=== PATIENT | male | born 1935 | race Caucasian/White ===

== ENCOUNTER 2016-10-27 22:42 | Observation (INO) | payer OTHER, MEDICARE ==
[~2016-10-27] VITALS: Ht 170.2 cm; Wt 106.6 kg
--- NOTE | 2016-10-27 22:43 | ED CARDIAC/CP/PALPITATIONS ---
History of Present Illness General Chief Complaint: Chest Pain Stated Complaint: BIBA FOR EVAL OF CHEST PAIN Source: patient, family, old records, EMS Exam Limitations: no limitations Vital Signs & Intake/Output Vital Signs & Intake/Output Vital Signs Date Time Temp Pulse Resp B/P Pulse O2 O2 Flow FiO2 Ox Delivery Rate 10/28 0030 96.9 71 20 135/74 96 Nasal Cannula 10/27 2250 97.6 69 20 139/68 96 Room Air ED Intake and Output 10/28 0000 10/27 1200 Intake Total 0 Output Total Balance 0 Intake, Oral 0 Patient 235 lb Weight Allergies Coded Allergies: alcohol (UNKNOWN 10/27/16) morphine (Intermediate, N/V 10/27/16) Reconcile Medications Amlodipine Besylate (Norvasc) 5 MG TABLET 0.5 TAB PO DAILY HIGH BLOOD PRESSURE (Reported) Ascorbic Acid (Vitamin C) 500 MG CAPSULE.ER 1 TAB PO DAILY VITAMIN SUPPORT ( Reported) Aspirin (Aspirin*) 81 MG TAB.CHEW 1 TAB PO DAILY HEART HEALTH (Reported) Dabigatran Etexilate Mesylate (Pradaxa 150 MG) 150 MG CAPSULE 1 TAB PO BID BLOOD THINNER (Reported) Doxazosin Mesylate (Cardura) 4 MG TABLET 2 TAB PO BID HIGH BLOOD PRESSURE ( Reported) Duloxetine HCl 60 MG CAPSULE.DR 60 MG PO DAILY PAIN CONTROL (Reported) Omeprazole 20 MG CAPSULE.DR 20 MG PO DAILY STOMACH HEALTH (Reported) Potassium Chloride 10 MEQ TAB.ER.PRT 10 MEQ PO DAILY LOW POTASSIUM (Reported) Pregabalin (Lyrica) 75 MG CAPSULE 75 MG PO BID PAIN CONTROL (Reported) Rosuvastatin Calcium (Crestor) 10 MG TABLET 10 MG PO DAILY HIGH CHOLESTROL ( Reported) Silodosin (Rapaflo) 8 MG CAPSULE 8 MG PO DAILY BLADDER HEALTH (Reported) Tolterodine Tartrate (Tolterodine Tartrate ER) 4 MG CAP.ER.24H 25 MG PO DAILY THYROID HEALTH (Reported) Valsartan/Hydrochlorothiazide (Diovan Hct 320-12.5 MG Tab) 320 MG-12.5 MG TABLET 1 TAB PO DAILY HEART HEALTH (Reported) Triage Nurses Notes Reviewed? yes Onset: Abrupt Duration: minute(s): (30) Timing: single episode today Quality/Severity: severe, pressure (IN CHEST), sharp (RIGHT ARM) Location: central Radiation: RIGHT ARM Activities at Onset: GETTING SOME SNACKS FROM THE KITCHEN Prior Chest Pain/Card Workup: cardiac cath Aspirin Today: provided by EMS Associated Symptoms: CHEST PAIN, ARM PAIN HPI: 81-year-old male with history of significant coronary disease, previous ND, 11 previous cardiac stents who presents via EMS from home for chief complaint of sudden onset of chest pain and right arm pain that started half an hour ago at home. Patient states he just gotten home from a meeting at [employer] and was referring to make himself some snacks when pain started. He described it as a sharp pain in his arm and he cannot attend pressure in his chest. He was given 324 mg of aspirin as well as 1 nitroglycerin spray in the ambulance. Currently he rates the chest pain is 5 out of 10 but states his right arm is still sharp. No shortness of breath or palpitations. He does notice some increased edema and bilateral legs for the past couple of days. Last cardiac stent [place] [address] 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 He denies any recent change in medications. Past History Travel History Traveled to [place] past 21 day No Medical History Any Pertinent Medical History? see below for history Neurological: NONE EENT: NONE Cardiovascular: AFIB, hypertension, hyperlipidemia, myocardial infarction, STENTS (11) Respiratory: NONE Gastrointestinal: NONE Hepatic: NONE Renal: NONE Musculoskeletal: chronic back pain Psychiatric: NONE Endocrine: hypothyroidism Blood Disorders: NONE Cancer(s): PROSTATE CANCER MELENOMA PERIPATOLOGIST/Reproductive: NONE Surgical History Surgical History: RIGHT HIP REPLACEMENT, STENTS X 11,BACK SURGERY Psychosocial History Who do you live with Spouse Services at Home None What is your primary language Spanish Family History Hx Contributory? No Review of Systems Review of Systems Constitutional: Denies: chills, fever. EENTM: Reports: no symptoms. Respiratory: Denies: cough, short of breath. Cardiovascular: Reports: chest pain. Denies: palpitations, peripheral edema. GI: Denies: abdominal pain, nausea, vomiting. Genitourinary: Reports: no symptoms. Musculoskeletal: Reports: see HPI (ARM PAIN). Skin: Reports: no symptoms. Neurological/Psychological: Reports: no symptoms. Hematologic/Endocrine: Denies: bruising, bleeding, polyuria, polydipsia. Immunologic/Allergic: Denies: splenectomy. All Other Systems: Reviewed and Negative Physical Exam Physical Exam General Appearance: well developed/nourished, alert, awake Head: atraumatic, normal appearance Eyes: Bilateral: normal appearance, PERRL, EOMI. Ears, Nose, Throat: normal pharynx, normal ENT inspection, hearing grossly normal Neck: normal inspection, supple, full range of motion Respiratory: normal breath sounds, chest non-tender, no respiratory distress Cardiovascular: regular rate/rhythm Peripheral Pulses: 2+ radial (R), 2+ radial (L) Gastrointestinal: soft, non-tender Extremities: normal inspection, no edema Neurologic/Psych: awake, alert, oriented x 3 Skin: intact, normal color, warm/dry Core Measures ACS in differential dx? Yes ASA ordered for poss ACS? given in field Severe Sepsis Present: No Septic Shock Present: No Progress Differential Diagnosis: AMI, aortic dissection, atrial fibrillation, costochondritis, pneumonia, pneumothorax, PSVT, pulmonary embolism, unstable angina, CERVICAL RADICULOPATHY Plan of Care: Orders Procedure Date/time Status Heart Healthy Diet 10/28 B Active TROPONIN LEVEL 10/28 1200 Active EKG 10/28 1200 Active TROPONIN LEVEL 10/28 0600 Active CBC WITHOUT DIFFERENTIAL 10/28 0600 Active BASIC ELECTROLYTES PLUS BUN&CR 10/28 0600 Active EKG 10/28 0600 Active Pathway - chart 10/28 0217 Active House Staff 10/28 0217 Active Patient Data 10/28 0217 Active Code Status 10/28 0217 Active Patient Data 10/[address] in observation 10/28 0058 Active Vital Signs 10/28 0058 Active Code Status 10/28 0058 Complete XRY-CERVICAL SPINE ONE VIEW 10/28 UNK Active VTE Mechanical Prophylaxis 10/28 UNK Active Telemetry/Tray Service Worker 10/28 UNK Active Telemetry/Tray Service Worker 10/27 2250 Active TROPONIN LEVEL 10/27 2243 Complete COMPREHENSIVE METABOLIC PANEL 10/27 2243 Complete CBC WITHOUT DIFFERENTIAL 10/27 2243 Complete EKG 10/27 2243 Active Current Medications Sig/Lencho Start time Last Medication Dose Stop Time Status Admin Enoxaparin Sodium 40 MG DAILY 10/28 1000 UNVr (Lovenox) Acetaminophen 650 MG Q6P PRN 10/28 0230 AC (Tylenol) Laboratory Tests 10/27/16 2315: Anion Gap 13, Estimated GFR > 60, BUN/Creatinine Ratio 20.0, Glucose 143 H, Calcium 9.2, Total Bilirubin 0.5, AST 26, ALT 40, Alkaline Phosphatase 61, Troponin I < 0.01, Total Protein 6.4, Albumin 3.8, Globulin 2.6, Albumin/ Globulin Ratio 1.5, CBC w Diff NO MAN DIFF REQ, RBC 3.77 L, MCV 93.1, MCH 31.0, RDW 14.5, MPV 8.6, Gran % 65.8, Lymphocytes % 19.4 L, Monocytes % 11.4 H, Eosinophils % 2.7, Basophils % 0.7, Absolute Granulocytes 6.2, Absolute Lymphocytes 1.8, Absolute Monocytes 1.1 H, Absolute Eosinophils 0.2, Absolute Basophils 0.1, PUBS MCHC 33.3 ASPIRIN/NITRO IN FIELD. STILL 5/10 PAIN. SL NITRO ORDERED. 12:50 CHEST PAIN FREE AFTER REPEAT NITRO. STILL SEVERE RIGHT ARM PAIN. IV DILAUDID [address]. CXR NEGATIVE. [address] CHEST ORDERED TO R/O DISSECTION. POTASSIUM ORDERED FOR HYPOKALEMIA. CT ANGIO NEGATIVE FOR DISSECTION. D/W DR HOBSON WILL PLACE ON TELE FOR OBS. CURRENTLY CHEST PAIN FREE AND PATIENT DENIES ANY ARM PAIN. (PAULA MIRANDA,MARILYN) Diagnostic Imaging: Viewed by Me: Radiology Read, CT Scan. Discussed w/RAD: Radiology Read, CT Scan. Radiology Impression: PATIENT: FORREST ALMARAZ PRESENT AGE: 81 PATIENT ACCOUNT NO: [id number] : 35 LOCATION: [facility] ORDERING PHYSICIAN: MARILYN MITCHELL MD SERVICE DATE: 10/27/16 EXAM TYPE: CAT - CTA CHEST-AORTIC DISSECTION STUDY PERFORMED: CTA OF THE CHEST WITH AND WITHOUT CONTRAST CLINICAL INFORMATION: Severe chest pain radiating to the right arm. DESCRIPTION: Initial noncontrast CT of the chest was performed. Contrast timing was performed at the level of the aortic arch. Subsequently, arterial phase multidetector volumetric imaging was performed through the chest following the administration of 115 mL Optiray 350 intravenous contrast. No contrast reaction reported Sagittal and coronal reformatted images were obtained on the technologist workstation. Three-dimensional MIP reformatted imaging was performed and reviewed. Total exam dose-length product 1421 mGy-cm COMPARISON: 12/14/2010. FINDINGS: Vascular: 1. Normal origin of the main coronary arteries. Diffuse coronary artery calcifications are present. 2. The ascending thoracic aorta is normal in course and caliber without dissection. 3. The aortic arch is normal in caliber without dissection. Normal branching configuration with patent great vessels. 4. The descending thoracic aorta is normal in caliber without dissection. Mild atherosclerotic calcification. Mildly tortuous course. 5. No central pulmonary embolism. Nonvascular: CHEST: The central airways are patent. The lungs are clear with no evidence of consolidation. No pleural effusion or pneumothorax. Minimal bibasilar atelectasis. Stable left lower lobe 0.4 cm pulmonary nodule, series 5 image 266. The heart is enlarged. No significant pericardial effusion. No mediastinal lymphadenopathy. No axillary lymphadenopathy. Surgical clips are seen in the right axillary soft tissues. UPPER ABDOMEN: Right upper pole renal cyst noted. The visualized portion of the upper abdomen is otherwise unremarkable. BONY STRUCTURES: No acute or suspicious osseous abnormality. Degenerative changes are seen throughout the spine. Spinal stimulator hardware noted terminating at the level of T8. IMPRESSION: 1. No aortic dissection. No significant vascular stenoses. Extensive coronary artery calcifications. 2. No acute findings in the lungs. Minimal atelectasis. 3. Stable left lower lobe pulmonary nodule over many years suggesting benign etiology. DICTATED BY: ELISEO BROWER MD DATE/TIME DICTATED:10/28/1635 TERRITORY MANAGER:EITAN DATE/TIME TRANSCRIBED:10/28/1635 CONFIDENTIAL, DO NOT COPY WITHOUT APPROPRIATE AUTHORIZATION. <Electronically signed in Other Vendor System> SIGNED BY: ELISEO BROWER MD 10/28/16 0049 CXR Impression: PATIENT: FORREST ALMARAZ PRESENT AGE: 81 PATIENT ACCOUNT NO: [id number] : 35 LOCATION: [facility] ORDERING PHYSICIAN: MARILYN MITCHELL MD SERVICE DATE: 10/27/16 EXAM TYPE: RAD - XRY-PORTABLE CHEST XRAY EXAMINATION: XR PORTABLE CHEST CLINICAL INFORMATION: Chest pain. COMPARISON: Chest x-ray 03/10/2015 TECHNIQUE: Portable AP view of the chest was obtained. FINDINGS: Lungs are clear. No pulmonary vascular congestion. No infiltrate or pleural effusion. The heart size is normal. The cardiac and mediastinal contours are normal. There are calcifications of the thoracic aorta. There are multilevel degenerative changes of dorsal spine. Surgical clips over the right axilla. IMPRESSION: No acute abnormality of the chest. DICTATED BY: JAZMYNE GILMORE MD DATE/TIME DICTATED:10/27/162319 TERRITORY MANAGER:EITAN DATE/TIME TRANSCRIBED:10/27/162319 CONFIDENTIAL, DO NOT COPY WITHOUT APPROPRIATE AUTHORIZATION. <Electronically signed in Other Vendor System> SIGNED BY: JAZMYNE GILMORE MD 10/27/162324 Initial ED EKG: AFIB Prior EKG: unchanged Rhythm Strip: atrial fibrillation Departure Departure Time of Disposition: 57 Disposition: STILL A PATIENT Condition: Stable Clinical Impression Primary Impression: Chest pain Secondary Impressions: Hypokalemia Referrals: SYEDA MEDLEY MD (PCP/Family) Departure Forms: Customer Survey General Discharge Information Observation Note Spoke With: JOCE MIRANDA,DIANNA Physician Advisor Notified: LILA HDZ DO Place Patient In: Non-ED OBS Care Area Rationale for Observation: My rational for observation is as follows [TELE MONITOR, ASPIRIN, NITRATES, SERIAL EKG, SERIAL TROPONIN, CARDIOLOGY CONSULT DR GUTIERREZ, ECHOCARDIOGRAM]. Critical Care Note Critical Care Note Critical Care Time: 30-74 min
--- NOTE | 2016-10-27 22:50 | NUR ---
PT BIBA FROM HOME. PER EMS PT HAD SUDDEN ONSET OF SUNSTERNAL CP RADIATING TO RIGHT ARM 30 MIN FINISHING TRIMMER. PER EMS PT TOOK 325 MG ASPIRIN AND EMS GAVE PT 1 NITRO THAT BROUGHT THE CP FROM 05/24 TO 12/22. PT HAS HX NH AND 10 CARDIAC SENTS.
--- NOTE | 2016-10-27 23:25 | RADIOLOGY REPORT ---
EXAMINATION: XR PORTABLE CHEST CLINICAL INFORMATION: Chest pain. COMPARISON: Chest x-ray 03/10/2015 TECHNIQUE: Portable AP view of the chest was obtained. FINDINGS: Lungs are clear. No pulmonary vascular congestion. No infiltrate or pleural effusion. The heart size is normal. The cardiac and mediastinal contours are normal. There are calcifications of the thoracic aorta. There are multilevel degenerative changes of dorsal spine. Surgical clips over the right axilla. IMPRESSION: No acute abnormality of the chest.
[2016-10-27 23:26] LABS: ABSOLUTE BASOPHIL COUNT 0.1 /CUMM (0.0-0.2); ABSOLUTE EOSINOPHIL COUNT 0.2 /CUMM (0.0-0.7); ABSOLUTE GRANULOCYTE CT 6.2 /CUMM (1.4-6.5); ABSOLUTE LYMPH COUNT 1.8 /CUMM (1.2-3.4); ABSOLUTE MONOCYTE COUNT 1.1 /CUMM (0.10-0.60); BASOPHIL % 0.7 % (0.0-2.0); EOSINOPHIL % 2.7 % (0-5); GRANULOCYTE % 65.8 % (42.2-75.2); HEMATOCRIT 35.1 % (42-52); MEAN CORPUSCULAR HGB CONC 33.3 G/DL (33.0-37.0); MEAN CORPUSCULAR VOLUME 93.1 FL (80.0-94.0); MEAN PLATELET VOLUME 8.6 FL (7.4-10.4); PLATELET COUNT 197 /CUMM (130-400); RBC DISTRIBUTION WIDTH 14.5 % (11.5-14.5); RED BLOOD CELL CT 3.77 /CUMM (4.70-6.10); WHITE BLOOD CELL COUNT 9.4 /CUMM (4.8-10.8)
--- NOTE | 2016-10-27 23:29 | NUR ---
PT REPORTS CP PAIN INCREASING. PT MEDICATED WITH 1MG HYDROMORPHONE PER ORDER
--- NOTE | 2016-10-27 23:50 | NUR ---
CRITICAL TEST RESULTS [id number] FORREST ALMARAZ 81 M TESTS AND RESULTS: POTASSIUM 3.0 Results received and read back by: ABBY HOOVER Results received date and time: 10/27/16 2350 The following provider was notified of the results, and read the results back: MD MITCHELL Notified date and time: 10/27/16 at 2350
--- NOTE | 2016-10-27 23:51 | NUR ---
PT REPORTS PAIN DECREASING AFTER BEING MEDICATED.
--- NOTE | 2016-10-28 00:30 | NUR ---
PT REPORTS PAIN IMPROVING AFTER BEING MEDICATED. PT DENIES CP BUT STILL C/O ARM PAIN. PT A/O X4. RESP UNLABORED. SKIN WARM AND DRY. NO APPARENT DISTRESS, WILL CONTINUE TO MONITOR.
--- NOTE | 2016-10-28 00:49 | CT SCAN REPORT ---
STUDY PERFORMED: CTA OF THE CHEST WITH AND WITHOUT CONTRAST CLINICAL INFORMATION: Severe chest pain radiating to the right arm. DESCRIPTION: Initial noncontrast CT of the chest was performed. Contrast timing was performed at the level of the aortic arch. Subsequently, arterial phase multidetector volumetric imaging was performed through the chest following the administration of 115 mL Optiray 350 intravenous contrast. No contrast reaction reported Sagittal and coronal reformatted images were obtained on the technologist workstation. Three-dimensional MIP reformatted imaging was performed and reviewed. Total exam dose-length product 1421 mGy-cm COMPARISON: 12/14/2010. FINDINGS: Vascular: 1. Normal origin of the main coronary arteries. Diffuse coronary artery calcifications are present. 2. The ascending thoracic aorta is normal in course and caliber without dissection. 3. The aortic arch is normal in caliber without dissection. Normal branching configuration with patent great vessels. 4. The descending thoracic aorta is normal in caliber without dissection. Mild atherosclerotic calcification. Mildly tortuous course. 5. No central pulmonary embolism. Nonvascular: CHEST: The central airways are patent. The lungs are clear with no evidence of consolidation. No pleural effusion or pneumothorax. Minimal bibasilar atelectasis. Stable left lower lobe 0.4 cm pulmonary nodule, series 5 image 266. The heart is enlarged. No significant pericardial effusion. No mediastinal lymphadenopathy. No axillary lymphadenopathy. Surgical clips are seen in the right axillary soft tissues. UPPER ABDOMEN: Right upper pole renal cyst noted. The visualized portion of the upper abdomen is otherwise unremarkable. BONY STRUCTURES: No acute or suspicious osseous abnormality. Degenerative changes are seen throughout the spine. Spinal stimulator hardware noted terminating at the level of T8. IMPRESSION: 1. No aortic dissection. No significant vascular stenoses. Extensive coronary artery calcifications. 2. No acute findings in the lungs. Minimal atelectasis. 3. Stable left lower lobe pulmonary nodule over many years suggesting benign etiology.
--- NOTE | 2016-10-28 02:07 | NUR ---
HOUSESTAFF AT BEDSIDE
--- NOTE | 2016-10-28 02:14 | History & Physical ---
BETHANY GONZÁLES MD 10/28/16 0213: General Information and HPI MD Statement: I have seen and personally examined FORREST ALMARAZ and documented this H&P. The patient is a 81 year old M who presented with a patient stated chief complaint of right arm and chest pain. Source of Information: patient, old records Exam Limitations: no limitations History of Present Illness: Mr. Almaraz is a pleasant 81 year old male with PMH coronary artery disease with stent placement x 11 (last stent placement by Dr. Reaves in 2011) , NSTEMI x 2 (2006, 2011), HTN, HLD, atrial fibrillation on pradaxa, chronic low back pain s/p L4-L5 fusion followed by Dr. Bolton, hypothyroidism, prostate cancer and melanoma status post excision who presents with chief complaint of right arm pain and right-sided chest pain. Patient reports that he was in his usual state of health this morning where he attending a yarsanism gathering. He later came home, was making himself a snack and noticed a sudden-onset 10/10 right arm pain, located mostly in the right biceps area. This pain was described as sharp. He became nervous that he was experiencing another myocardial infarction and had his call EMS at that time. On EMS arrival, patient then noted right-sided chest pressure, which was non-radiating, not associated with diaphoresis, shortness or breath or palpitations and was different in nature to the chest pain he experienced with his prior NSTEMIs. He had both aspirin and a nitrogylcerin, the latter which dropped his chest pain from a 10/10 to a 5/10. He again had another nitrogylcerin when he arrived to our emergency room which dropped the chest pressure to a 0/10 but had again no effect on the right arm pain. Associated symptoms included intense right arm and right-sided chest pressure. He also endorsed larygnitis that started approximately one day ago. He denies fever, chills, diaphoresis, palpitations, shortness of breath, abdominal pain, nausea, vomiting or weakness. Of ntoe, patient admitted that he was outside shoveling yesterday and was slightly more active than normal. He denied increase stress or anxiety during his yarsanism meeting today. Social history is significant for former smoking. He denies alcohol or illicit drug use. He lives at home with his and ambulates without assist device. He follows with Dr. Jace Martinez MD as his line tester and Dr. Bolton as his pain specialist. Allergies/Medications Allergies: Coded Allergies: alcohol (UNKNOWN 10/27/16) morphine (Intermediate, N/V 10/27/16) Home Med list Amlodipine Besylate (Norvasc) 5 MG TABLET 0.5 TAB PO DAILY HIGH BLOOD PRESSURE (Reported) Ascorbic Acid (Vitamin C) 500 MG CAPSULE.ER 1 TAB PO DAILY VITAMIN SUPPORT ( Reported) Aspirin (Aspirin*) 81 MG TAB.CHEW 1 TAB PO DAILY HEART HEALTH (Reported) Calcium Carbonate/Vitamin D3 (Caltrate 600 + D Tablet) 600 MG-800 TABLET 1 TAB PO DAILY VITAMIN SUPPORT (Reported) Dabigatran Etexilate Mesylate (Pradaxa 150 MG) 150 MG CAPSULE 1 TAB PO BID BLOOD THINNER (Reported) Doxazosin Mesylate (Cardura) 4 MG TABLET 2 TAB PO BID HIGH BLOOD PRESSURE ( Reported) Duloxetine HCl 60 MG CAPSULE.DR 60 MG PO DAILY PAIN CONTROL (Reported) Furosemide 20 MG TABLET 20 MG PO DAILY WATER RETENTION (Reported) Levothyroxine Sodium 25 MCG TABLET 1 TAB PO DAILY thyroid (Reported) Magnesium Oxide (Magnesium) 500 MG CAPSULE 500 MG PO DAILY RESTLESS LEGS ( Reported) Omeprazole 20 MG CAPSULE.DR 20 MG PO DAILY STOMACH HEALTH (Reported) Potassium Chloride 10 MEQ TAB.ER.PRT 10 MEQ PO DAILY LOW POTASSIUM (Reported) Pregabalin (Lyrica) 75 MG CAPSULE 75 MG PO BID PAIN CONTROL (Reported) Rosuvastatin Calcium (Crestor) 10 MG TABLET 10 MG PO DAILY HIGH CHOLESTROL ( Reported) Silodosin (Rapaflo) 8 MG CAPSULE 8 MG PO DAILY BLADDER HEALTH (Reported) Valsartan/Hydrochlorothiazide (Diovan Hct 320-12.5 MG Tab) 320 MG-12.5 MG TABLET 1 TAB PO DAILY HEART HEALTH (Reported) Compliance With Home Meds: GOOD Past History Travel History Traveled to [place] past 21 day No Medical History Neurological: NONE EENT: NONE Cardiovascular: AFIB, hypertension, hyperlipidemia, myocardial infarction, STENTS (11) Respiratory: NONE Gastrointestinal: NONE Hepatic: NONE Renal: NONE Musculoskeletal: chronic back pain Psychiatric: NONE Endocrine: hypothyroidism Blood Disorders: NONE Cancer(s): PROSTATE CANCER 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 Home Who Do You Live With? spouse Services at Home: None Primary Language: British Smoking Status: Former Smoker ETOH Use: denies use Illicit Drug Use: denies illicit drug use Functional Ability ADLs Independent: dressing, eating, toileting, bathing. Ambulation: independent IADLs Independent: shopping, housework, finances, food prep, telephone, transportation , medication admin. Employment History Employment Retired Review of Systems Review of Systems Constitutional: Denies: chills, diaphoresis, fever, malaise, weakness. EENTM: Denies: visual changes, hearing changes, nasal congestion. Cardiovascular: Reports: chest pain. Denies: edema, orthopena, palpitations, peripheral edema, syncope. Respiratory: Denies: cough, short of breath, sputum production, wheezing. GI: Denies: abdominal pain, nausea, vomiting. Genitourinary: Denies: dysuria, hematuria. Musculoskeletal: Reports: back pain (Chronic low back pain). Skin: Reports: lesions (Scattered raised red moles). Denies: rash. Neurological/Psychological: Denies: anxiety, ataxia, confusion, headache, paresthesia, tingling. Hematologic/Endocrine: Denies: bruising, bleeding. Immunologic/Allergic: Denies: splenectomy. Exam & Diagnostic Data Last 24 Hrs of Vital Signs/I&O Vital Signs Date Time Temp Pulse Resp B/P Pulse O2 O2 Flow FiO2 Ox Delivery Rate 10/28 0247 97.2 65 18 130/62 96 Nasal 2.0L Cannula 10/28 0030 96.9 71 20 135/74 96 Nasal Cannula 10/27 2250 97.6 69 20 139/68 96 Room Air Intake & Output 10/28 0800 10/28 0000 10/27 1600 Intake Total 0 Output Total Balance 0 Intake, Oral 0 Patient 235 lb Weight Physical Exam General Appearance Alert, Oriented X3, Cooperative, No Acute Distress Skin Scattered erythematous and slightly raised lesions which patient report are chronic. , Chronic venous stasis changes of bilateral shins. HEENT Atraumatic, PERRLA, EOMI, Mucous Membr. moist/pink Neck Supple, +2 Carotid Pulse wo Bruit Lymphatic Cervical nl Cardiovascular Irregularly irregular, normal intensity S1/S2 Lungs Clear to Auscultation, Normal Air Movement Abdomen Obese, non-tender to palpation, +BS x four quadrants, left lower quadrant nerve stimulator and right abdomen surgical excisional scar. Neurological Normal Speech, Strength at 5/5 X4 Ext, Normal Tone Extremities No Clubbing, No Cyanosis, 1+ pitting edema of bilateral lower extremities with chronic stasis changes Vascular Pulses Symmetrical Last 24 Hrs of Labs/David: Laboratory Tests 10/27/16 2315: Anion Gap 13, Estimated GFR > 60, BUN/Creatinine Ratio 20.0, Glucose 143 H, Calcium 9.2, Total Bilirubin 0.5, AST 26, ALT 40, Alkaline Phosphatase 61, Troponin I < 0.01, Total Protein 6.4, Albumin 3.8, Globulin 2.6, Albumin/ Globulin Ratio 1.5, CBC w Diff NO MAN DIFF REQ, RBC 3.77 L, MCV 93.1, MCH 31.0, RDW 14.5, MPV 8.6, Gran % 65.8, Lymphocytes % 19.4 L, Monocytes % 11.4 H, Eosinophils % 2.7, Basophils % 0.7, Absolute Granulocytes 6.2, Absolute Lymphocytes 1.8, Absolute Monocytes 1.1 H, Absolute Eosinophils 0.2, Absolute Basophils 0.1, PUBS MCHC 33.3 Diagnostic Data EKG Results Atrial fibrillation, QTC 496. CXR Results IMPRESSION: No acute abnormality of the chest. Other Results Chest CTA: IMPRESSION: 1. No aortic dissection. No significant vascular stenoses. Extensive coronary artery calcifications. 2. No acute findings in the lungs. Minimal atelectasis. 3. Stable left lower lobe pulmonary nodule over many years suggesting benign etiology. Assessment/Plan Assessment: Mr. Almaraz is a pleasant 81 year old male with PMH HTN, HLD, atrial fibrillation on pradaxa, coronary artery disease s/p 11 stents (most recent in 2011), two NSTEMI, chronic low back pain with L4-L5 fusion, hypothyroidism, prostate cancer and melanoma who presents with chief complaint of right arm and chest pain. As per patient, he was making a snack earlier this AM when he noted 10/10 right biceps and arm pain for which he called EMS. On their arrival, he developed 10/10 right-sided chest pressure that was responsive to nitrogylcerin. There was no associated diaphoresis, neck pain, nausea, vomiting or palpitations. In the ED: Vital signs showed T 97.6, HR 69, RR 20, BP 139/68 and O2 saturation of 96% on room air. Labs were significant for normocytic anemia to 11.7/35.1, K of 3, Glucose of 143 and troponin <0.01. CXR showed no acute abnormality of the chest. Chest CTA showed no aortic dissection, extensive coronary artery calcifications, minimal atelectasis, and a stable left lower lobe pulmonary nodule. Patient is admitted as observation to the telemetry floor and the following is the management: 1. Chest pain, rule out ACS * Due to extensive cardiac history and HPI suggestive of possible underlying cardiac cause of right arm/chest discomfort, we will admit patient to telemetry for observation * Continuous telemetry monitoring * Trend troponins/EKG at 6 am and 12 pm (first set negative) * Inform Dr. Martinez of admission in the morning for further cardiac recomendations * Hold off on echocardiogram for now as patient recently had one by Dr. Martinez * Provide supplemental O2 as needed * For right arm pain, we will obtain next Xray to monitor for osteophyte formation/OA changes which may be contributing to right arm pain 2. Hypokalemia * Patient has a history of hypokalemia and is on supplementation as an outpatient * Patient given 40 meq PO KDur and 10 meq KCl while in the ED * F/U repeat labwork in the morning and replete K as necessary * Continue 10 meq PO KDur daily with 500 mg PO daily magnesium 3. HTN, HLD * Monitor vital signs Q shift * Continue HCTZ 12.5 mg PO daily, losartan 50 mg PO daily and norvasc 2.5 mg PO daily * Continue atorvastatin 40 mg PO daily 4. Atrial fibrillation * Pradaxa 150 mg PO BID and aspirin daily 5. Low back pain, right arm pain * Tylenol for mild pain * Continue home regimen of cymbalta 60 mg PO daily and lyrica 75 mg PO BID 6. Prostate * Continue cardura 6 mg PO BID and rapaflo 8 mg PO daily 7. Hypothyroidism * Continue synthroid 0.025 mg PO daily FULL CODE DVTP: SC Lovenox Heart Healthy Diet Mild and chronic pain pathway As Ranked By This Provider Problem List: 1. Chest pain 2. Hypokalemia 3. Dependent edema 4. Hyperlipidemia 5. Benign prostatic hyperplasia 6. Benign hypertension Core Measures/Miscellaneous Acute Coronary Syndrome ACS Diagnosis: No Cerebrovascular Accident CVA/TIA Diagnosis: No Congestive Heart Failure CHF Diagnosis: No Venous Thromboembolism VTE Risk Factors: Acute medical illness, Age > 40, Obesity No [facility] VTE prophylaxis d/t: No contraindications No VTE Pharm Prophylaxis d/t: No contraindications VTE Diagnosis: No VTE Type: NONE VTE Confirmed by (Test): NONE Severe Sepsis Severe Sepsis Present: No Septic Shock Septic Shock Present: No Miscellaneous Documentation Attending Case Discussed With: DIANNA HOBSON MD Primary Care Physician: SYEDA MEDLEY MD A Patient sees these Specialists Dr. Jace Martinez MD- Cardiology Level of Patient Care: Telemetry [facility] 10/28/16 0535: Resident Review Statement Resident Statement: examined this patient, discussed with program management intern, agreed with program management intern, discussed with family Other Findings: This is an 81 y/o male with an extensive cardiac history including NSTEMI and CAD s/p 11 stents (last done in 2011, by Dr. Reaves) who presented to the ED with complaints of chest pain and right arm pain. Per patient, he shoveled snow yesterday without any difficulty. This AM, he went to yarsanism and then came back home to make a snack,when his chest started to hurt. EMS was called and the patient then began to experience right arm pain as well. He was given Nitrostat en route, which brought the pain down from 10/10 to 5/10. In the ED, he was given another Nitrostat which relieved his chest pain but his right arm pain remained. He was then given Dilaudid. Arm pain reduced to numbness and tingling and then finally disappeared. He denies any diaphoresis, palpitations etc. He denies any weakness, numbness, tingling of the arm, when he was having 10/10 pain. Plan: - Admit to tele to r/o ACS as an observation. - Repeat Trops and EKG X 3 - Cardio consult in the AM ( Patient sees Dr. Martinez as an outpatient) - DVT PPx: Lovenox SubQ - Pain Pathway: Tylenol PRN - Code Status: Full Code DIANNA HOBSON 10/28/16 0716: Attending MD Review Statement Attending Statement Attending MD Statement: examined this patient, discuss w/resident/PA/SERVICE DISPATCHER, agreed w/resident/PA/SERVICE DISPATCHER, reviewed EMR data (avail), reviewed images, amended to note Attending Assessment/Plan: CC: PIYUSH PMHx: PMHx: CAD S/P multiple stents and NSTEMI, HTN, hypothyroidism, A. fib on Pradaxa, HLD, CA prostate, chronic back pain S/P L4-L5 fusion, cervical disc surgery, melanoma S/P excision Presented with severe right arm pain, followed by right-sided chest pain. Chest pain improved from 10/10 to 5/10 after nitroglycerin, resolved after second dose of nitroglycerin in ER. Right arm pain is much better after pain medications, no palpitations, diaphoresis, LOC, dyspnea. Patient admits shoveling snow but for very short duration. Vitals: Afebrile, pulse, RRR, blood pressure, O2 saturation within acceptable range. On examination: A O 3, no acute distress, no anxious, neck supple, no JVD, no lymphadenopathy, mucosa moist, no focal neurological deficit, CVS: S1-S2, irregular. RS: Clear to auscultate bilaterally. Abdomen: Soft, NT, ND, bowel sounds present. Patient has pitting edema bilateral lower extremity with chronic stasis changes. Peripheral pulses perfusion normal. Labs: Hemoglobin 11.7, potassium 3.0, troponin less than 0.01, otherwise CBC, BMP, LFT unremarkable. EKG no acute changes CXR: No acute abnormality CTA chest: 1. No aortic dissection. No significant vascular stenoses. Extensive coronary artery calcifications. 2. No acute findings in the lungs. Minimal atelectasis. 3. Stable left lower lobe pulmonary nodule over many years suggesting benign etiology. A And P #1 chest pain: atypical, resolved with nitro, extensive cardiac history. EKG no acute changes, first set of troponin negative. Rule out ACS, trend troponin, telemetry monitoring, serial EKGs, or neurologic consult in a.m. aortic dissection and PE ruled out #2 right arm pain: unclear etiology, ? Musculoskeletal after snow shoveling, patient has remote history cervical disc surgery, gets chronic pain intermittent claudication pain bilateral lower extremities. ? Rule out radiculopathy. Pain control with when necessary morphine and Tylenol #3 chronic stable conditions HTN, hypothyroidism, A. fib, HLD : Continue all his home medications. Consider small dose of IV Lasix for increased bilateral lower extremity edema.
[2016-10-28] MEDS ORDERED: DIOVAN HCT 3201 EAC1 PO (02:19)
[2016-10-28] MEDS ORDERED: NORVASC5 M1 PO (02:20)
[2016-10-28] MEDS ORDERED: CARDURA4 M1 PO (02:23)
[2016-10-28] MEDS ORDERED: PRADAXA150 M1 PO (02:24)
[2016-10-28] MEDS ORDERED: ASPIRIN81 M4 PO (02:27)
[2016-10-28] MEDS ORDERED: LYRICA75 M1 PO (02:29)
[2016-10-28] MEDS ORDERED: DULOXETINE HCL60 MG PO (02:30)
[2016-10-28] MEDS ORDERED: OMEPRAZOLE20 M2 PO (02:31)
[2016-10-28] MEDS ORDERED: CRESTOR10 M1 PO (02:32)
[2016-10-28] MEDS ORDERED: TOLTERODINE TART4 M1 PO (02:33)
[2016-10-28] MEDS ORDERED: RAPAFLO8 M1 PO (02:36)
[2016-10-28] MEDS ORDERED: POTASSIUM CHLO10 ME5 PO (02:38)
[2016-10-28] MEDS ORDERED: VITAMIN C500 M7 PO (02:40)
[2016-10-28] MEDS ORDERED: MAGNESIUM500 M2 PO (02:44)
[2016-10-28] MEDS ORDERED: FUROSEMIDE20 M1 PO (02:45)
[2016-10-28] MEDS ORDERED: CALTRATE 600 +1 EACH PO (02:46)
[2016-10-28] MEDS ORDERED: LEVOTHYROXINE25 MCG PO (02:57)
--- NOTE | 2016-10-28 03:13 | NUR ---
PT A/O X4. RESP UNLABORED. SKIN WARM AND DRY. PT DENIES PAIN. PT REPOSITIONED. PT APPEARS COMFORTBALE. NO APPARENT DISTRESS.
--- NOTE | 2016-10-28 03:18 | RADIOLOGY REPORT ---
EXAMINATION: XR CERVICAL SPINE CLINICAL INFORMATION: Pain in the right arm and chest. Evaluate for osteoporosis arthritis. COMPARISON: None TECHNIQUE: 2 views, 3 images of the cervical spine. FINDINGS: No fracture or subluxation. There is fusion of C4-C6 vertebral bodies with disc space narrowing at the remaining levels. Alignment is maintained. Vertebral body heights are otherwise maintained. The lung apices are clear. The prevertebral soft tissues are unremarkable. IMPRESSION: Vertebral body fusion from C4 to C6. Disc space narrowing at the remaining levels.
[2016-10-28 04:40] VITALS: BP 118/68
[2016-10-28 08:06] VITALS: BP 116/60
[2016-10-28 08:25] LABS: ABSOLUTE BASOPHIL COUNT 0 /CUMM (0.0-0.2); ABSOLUTE EOSINOPHIL COUNT 0.2 /CUMM (0.0-0.7); ABSOLUTE GRANULOCYTE CT 5.7 /CUMM (1.4-6.5); ABSOLUTE LYMPH COUNT 1.4 /CUMM (1.2-3.4); ABSOLUTE MONOCYTE COUNT 0.7 /CUMM (0.10-0.60); BASOPHIL % 0.6 % (0.0-2.0); EOSINOPHIL % 2.2 % (0-5); GRANULOCYTE % 71.1 % (42.2-75.2); HEMATOCRIT 33.4 % (42-52); MEAN CORPUSCULAR HGB 31.2 PG (27.0-31.0); MEAN CORPUSCULAR HGB CONC 33.4 G/DL (33.0-37.0); MEAN CORPUSCULAR VOLUME 93.5 FL (80.0-94.0); MEAN PLATELET VOLUME 8.8 FL (7.4-10.4); PLATELET COUNT 187 /CUMM (130-400); RBC DISTRIBUTION WIDTH 14.7 % (11.5-14.5); RED BLOOD CELL CT 3.57 /CUMM (4.70-6.10)
--- NOTE | 2016-10-28 13:20 | Cons- Cardiology ---
General Information and HPI Consulting Request Date of Consult: 10/28/16 Requested By: LEATHA WHEATLEY MD Reason for Consult: Chest pain; coronary artery disease; rule out acute coronary syndrome Source of Information: patient, old records History of Present Illness: 81 year old male well known to me with history of CAD and multiple prior stents. Admitted now after an episode of few hours of right chest discomfort and shoulder pain without associated symptoms. Ultimately relieved with TNG SL x 2 and dilaudid. ECG without change. Asymptomatic since admission. First troponin normal.. Second troponin 0.41. Allergies/Medications Allergies: Coded Allergies: alcohol (UNKNOWN 10/27/16) atorvastatin (From LIPITOR) (Severe, MUSCLE CRAMPS, LEGS PAIN 10/28/16) morphine (Intermediate, N/V 10/27/16) Home Med List: Amlodipine Besylate (Norvasc) 5 MG TABLET 0.5 TAB PO DAILY HIGH BLOOD PRESSURE (Reported) Ascorbic Acid (Vitamin C) 500 MG CAPSULE.ER 1 TAB PO DAILY VITAMIN SUPPORT ( Reported) Aspirin (Aspirin*) 81 MG TAB.CHEW 1 TAB PO DAILY HEART HEALTH (Reported) Calcium Carbonate/Vitamin D3 (Caltrate 600 + D Tablet) 600 MG-800 TABLET 1 TAB PO DAILY VITAMIN SUPPORT (Reported) Dabigatran Etexilate Mesylate (Pradaxa 150 MG) 150 MG CAPSULE 1 TAB PO BID BLOOD THINNER (Reported) Doxazosin Mesylate (Cardura) 4 MG TABLET 2 TAB PO BID HIGH BLOOD PRESSURE ( Reported) Duloxetine HCl 60 MG CAPSULE.DR 60 MG PO DAILY PAIN CONTROL (Reported) Furosemide 20 MG TABLET 20 MG PO DAILY WATER RETENTION (Reported) Levothyroxine Sodium 25 MCG TABLET 1 TAB PO DAILY thyroid (Reported) Magnesium Oxide (Magnesium) 500 MG CAPSULE 500 MG PO DAILY RESTLESS LEGS ( Reported) Omeprazole 20 MG CAPSULE.DR 20 MG PO DAILY STOMACH HEALTH (Reported) Potassium Chloride 10 MEQ TAB.ER.PRT 10 MEQ PO DAILY LOW POTASSIUM (Reported) Pregabalin (Lyrica) 75 MG CAPSULE 75 MG PO BID PAIN CONTROL (Reported) Rosuvastatin Calcium (Crestor) 10 MG TABLET 10 MG PO DAILY HIGH CHOLESTROL ( Reported) Silodosin (Rapaflo) 8 MG CAPSULE 8 MG PO DAILY BLADDER HEALTH (Reported) Valsartan/Hydrochlorothiazide (Diovan Hct 320-12.5 MG Tab) 320 MG-12.5 MG TABLET 1 TAB PO DAILY HEART HEALTH (Reported) Current Medications: Current Medications Sig/Lencho Start time Last Medication Dose Route Stop Time Status Admin Acetaminophen 650 MG Q6P PRN 10/28 0230 AC PO Amlodipine Besylate 2.5 MG DAILY 10/28 1000 AC 10/28 PO 1042 Aspirin 81 MG DAILY 10/28 1000 AC 10/28 PO 1041 Atorvastatin Calcium 40 MG 1700 10/28 1700 AC PO Dabigatran 150 MG BID 10/28 1000 DC 10/28 PO 1042 Doxazosin Mesylate 8 MG BID 10/28 1000 AC 10/28 PO 1041 Duloxetine HCl 60 MG DAILY 10/28 1000 AC 10/28 PO 1041 Enoxaparin Sodium 40 MG DAILY 10/28 1000 CAN SC Furosemide 20 MG DAILY 10/28 1000 AC 10/28 PO 1042 Hydrochlorothiazide 12.5 MG DAILY 10/28 1000 AC 10/28 PO 1041 Hydromorphone HCl 1 MG ONCE ONE 10/27 2330 DC 10/27 IV 10/27 2331 2329 Hydromorphone HCl 0 .STK-MED ONE 10/27 2322 DC .ROUTE Levothyroxine Sodium 0.025 MG DAILY AC 10/28 0700 AC 10/28 PO 0853 Losartan Potassium 50 MG DAILY 10/28 1000 AC 10/28 PO 1041 Magnesium Oxide 400 MG DAILY 10/28 1000 AC 10/28 PO 1042 Nitroglycerin 0 .STK-MED ONE 10/27 2301 DC SL Nitroglycerin 0.4 MG ONCE ONE 10/27 2300 DC 10/27 SL 10/27 2301 2312 Non-Formulary 0 SEE ADMIN CRITERIA 10/28 0300 CAN Medication ANY Omeprazole 20 MG DAILY AC 10/28 0700 AC 10/28 PO 0858 Potassium Chloride 10 MEQ DAILY 10/28 1000 AC 10/28 PO 1041 Potassium Chloride 40 MEQ ONCE ONE 10/28 0915 DC 10/28 PO 10/28 0916 1040 Potassium Chloride 0 .STK-MED ONE 10/28 0036 DC PO Potassium Chloride 0 .STK-MED ONE 10/28 0036 DC IV Potassium Chloride 40 MEQ ONCE ONE 10/27 2345 DC 10/28 PO 10/27 2346 0037 Potassium Chloride 10 MEQ ONCE ONE 10/27 2345 DC 10/28 IV 10/27 2346 0037 Pregabalin 75 MG BID 10/28 1000 AC 10/28 PO 1041 Tamsulosin HCl 0.4 MG DAILY 10/28 1000 AC 10/28 PO 1042 Past History Travel History Traveled to [place] past 21 day No Medical History Blood Transfusion Hx: No Neurological: NONE EENT: NONE Cardiovascular: AFIB, hypertension, hyperlipidemia, myocardial infarction, STENTS (11) Respiratory: NONE Gastrointestinal: NONE Hepatic: NONE Renal: NONE Musculoskeletal: chronic back pain Psychiatric: NONE Endocrine: hypothyroidism Blood Disorders: NONE Cancer(s): PROSTATE CANCER [employer] REP/Reproductive: NONE Surgical History Surgical History: RIGHT HIP REPLACEMENT, STENTS X 11,BACK SURGERY Psychosocial History Where Do You Live? Home Who Do You Live With? spouse Services at Home: None Primary Language: Armenian Smoking Status: Former Smoker ETOH Use: denies use Illicit Drug Use: denies illicit drug use Functional Ability ADLs Independent: dressing, eating, toileting, bathing. Ambulation: independent IADLs Independent: shopping, housework, finances, food prep, telephone, transportation , medication admin. Employment History Employment: Retired Exam & Diagnostic Data Vital Signs and I&O Vital Signs Date Time Temp Pulse Resp B/P Pulse O2 O2 Flow FiO2 Ox Delivery Rate 10/28 1042 68 116/60 10/28 1042 68 116/60 10/28 1041 68 116/60 10/28 0806 98.1 68 20 116/60 95 Room Air 10/28 0440 95 10/28 0440 97.2 65 18 118/68 95 Room Air 10/28 0247 97.2 65 18 130/62 96 Nasal 2.0L Cannula 10/28 0030 96.9 71 20 135/74 96 Nasal Cannula 10/27 2250 97.6 69 20 139/68 96 Room Air Intake & Output 10/28 1600 10/28 0800 10/28 0000 10/27 1600 10/27 0800 10/27 0000 Intake Total 480 0 Output Total Balance 480 0 Intake, Oral 480 0 Patient 235 lb 235 lb Weight Physical Exam: General Appearance Alert, Oriented X3, Cooperative, No Acute Distress Skin Scattered erythematous and slightly raised lesions which patient report are chronic. , Chronic venous stasis changes of bilateral shins. HEENT normal Neck Supple, +2 Carotid Pulse wo Bruit Lymphatic Cervical nl Cardiovascular Irregularly irregular, normal intensity S1/S2, 1-2/6 systolic murmur Lungs Clear to Auscultation bilaterally Abdomen NOrmal Neurological Nonfocal Extremities No Clubbing, No Cyanosis, 1+ pitting edema of bilateral lower extremities with chronic stasis changes Vascular Pulses Symmetrical Labs/David Results: Laboratory Tests 10/28 10/28 1230 0621 Chemistry Sodium (137 - 145 mmol/L) 139 Potassium (3.5 - 5.1 mmol/L) 3.7 Chloride (98 - 107 mmol/L) 102 Carbon Dioxide (22 - 30 mmol/L) 30 Anion Gap (5 - 16) 8 BUN (9 - 20 mg/dL) 16 Creatinine (0.7 - 1.2 mg/dL) 0.8 Estimated GFR (>60 ml/min) > 60 BUN/Creatinine Ratio (7 - 25 %) 20.0 Magnesium (1.6 - 2.3 mg/dL) 2.2 Troponin I (<0.11 ng/ml) Pending 0.41 *H Hematology CBC w Diff NO MAN DIFF REQ WBC (4.8 - 10.8 /CUMM) 8.0 RBC (4.70 - 6.10 /CUMM) 3.57 L Hgb (14.0 - 18.0 G/DL) 11.1 L Hct (42 - 52 %) 33.4 L MCV (80.0 - 94.0 FL) 93.5 MCH (27.0 - 31.0 PG) 31.2 H RDW (11.5 - 14.5 %) 14.7 H Plt Count (130 - 400 /CUMM) 187 MPV (7.4 - 10.4 FL) 8.8 Gran % (42.2 - 75.2 %) 71.1 Lymphocytes % (20.5 - 51.1 %) 17.2 L Monocytes % (1.7 - 9.3 %) 8.9 Eosinophils % (0 - 5 %) 2.2 Basophils % (0.0 - 2.0 %) 0.6 Absolute Granulocytes (1.4 - 6.5 /CUMM) 5.7 Absolute Lymphocytes (1.2 - 3.4 /CUMM) 1.4 Absolute Monocytes (0.10 - 0.60 /CUMM) 0.7 H Absolute Eosinophils (0.0 - 0.7 /CUMM) 0.2 Absolute Basophils (0.0 - 0.2 /CUMM) 0 PUBS MCHC (33.0 - 37.0 G/DL) 33.4 10/27 2315 Chemistry Sodium (137 - 145 mmol/L) 139 Potassium (3.5 - 5.1 mmol/L) 3.0 L Chloride (98 - 107 mmol/L) 100 Carbon Dioxide (22 - 30 mmol/L) 25 Anion Gap (5 - 16) 13 BUN (9 - 20 mg/dL) 18 Creatinine (0.7 - 1.2 mg/dL) 0.9 Estimated GFR (>60 ml/min) > 60 BUN/Creatinine Ratio (7 - 25 %) 20.0 Glucose (65 - 99 mg/dL) 143 H Calcium (8.4 - 10.2 mg/dL) 9.2 Total Bilirubin (0.2 - 1.3 mg/dL) 0.5 AST (17 - 59 U/L) 26 ALT (21 - 72 U/L) 40 Alkaline Phosphatase (< 127 U/L) 61 Troponin I (<0.11 ng/ml) < 0.01 Total Protein (6.3 - 8.2 g/dL) 6.4 Albumin (3.5 - 5.0 g/dL) 3.8 Globulin (1.9 - 4.2 gm/dL) 2.6 Albumin/Globulin Ratio (1.1 - 2.2 %) 1.5 Hematology CBC w Diff NO MAN DIFF REQ WBC (4.8 - 10.8 /CUMM) 9.4 RBC (4.70 - 6.10 /CUMM) 3.77 L Hgb (14.0 - 18.0 G/DL) 11.7 L Hct (42 - 52 %) 35.1 L MCV (80.0 - 94.0 FL) 93.1 MCH (27.0 - 31.0 PG) 31.0 RDW (11.5 - 14.5 %) 14.5 Plt Count (130 - 400 /CUMM) 197 MPV (7.4 - 10.4 FL) 8.6 Gran % (42.2 - 75.2 %) 65.8 Lymphocytes % (20.5 - 51.1 %) 19.4 L Monocytes % (1.7 - 9.3 %) 11.4 H Eosinophils % (0 - 5 %) 2.7 Basophils % (0.0 - 2.0 %) 0.7 Absolute Granulocytes (1.4 - 6.5 /CUMM) 6.2 Absolute Lymphocytes (1.2 - 3.4 /CUMM) 1.8 Absolute Monocytes (0.10 - 0.60 /CUMM) 1.1 H Absolute Eosinophils (0.0 - 0.7 /CUMM) 0.2 Absolute Basophils (0.0 - 0.2 /CUMM) 0.1 PUBS MCHC (33.0 - 37.0 G/DL) 33.3 Diagnostic Data EKG Results Normal sinus rhythm; nonspecific ST-T changes CXR Results FINDINGS: Lungs are clear. No pulmonary vascular congestion. No infiltrate or pleural effusion. The heart size is normal. The cardiac and mediastinal contours are normal. There are calcifications of the thoracic aorta. There are multilevel degenerative changes of dorsal spine. Surgical clips over the right axilla. IMPRESSION: No acute abnormality of the chest. Other Results CTA chest: FINDINGS: Vascular: 1. Normal origin of the main coronary arteries. Diffuse coronary artery calcifications are present. 2. The ascending thoracic aorta is normal in course and caliber without dissection. 3. The aortic arch is normal in caliber without dissection. Normal branching configuration with patent great vessels. 4. The descending thoracic aorta is normal in caliber without dissection. Mild atherosclerotic calcification. Mildly tortuous course. 5. No central pulmonary embolism. Nonvascular: CHEST: The central airways are patent. The lungs are clear with no evidence of consolidation. No pleural effusion or pneumothorax. Minimal bibasilar atelectasis. Stable left lower lobe 0.4 cm pulmonary nodule, series 5 image 266. The heart is enlarged. No significant pericardial effusion. No mediastinal lymphadenopathy. No axillary lymphadenopathy. Surgical clips are seen in the right axillary soft tissues. UPPER ABDOMEN: Right upper pole renal cyst noted. The visualized portion of the upper abdomen is otherwise unremarkable. BONY STRUCTURES: No acute or suspicious osseous abnormality. Degenerative changes are seen throughout the spine. Spinal stimulator hardware noted terminating at the level of T8. IMPRESSION: 1. No aortic dissection. No significant vascular stenoses. Extensive coronary artery calcifications. 2. No acute findings in the lungs. Minimal atelectasis. 3. Stable left lower lobe pulmonary nodule over many years suggesting benign etiology. Assessment/Plan Assessment/Plan Has been: 1. Atypical chest and shoulder discomfort; rule out acute coronary syndrome 2. Elevated troponin 3. History of known coronary artery disease, status post multiple stents 4. Atrial fibrillation 5. Hypertension 6. Mild anemia Recommendations: -Despite the fact that the patient's symptoms are somewhat atypical, and the fact that his ECG shows no stiff in changes, the patient's symptoms were relieved somewhat by nitroglycerin and his second troponin is elevated at 0.41. In view of these findings, and in view of the fact that the patient has multiple known stents, I feel that proceeding with cardiac catheterization to define his anatomy would be the most prudent approach. I discussed this with the patient. I also discussed this with Dr. Cota at [place]. -Continue current medications -Would ask is on hold for now. -Nothing by mouth after midnight for cardiac catheterization tomorrow with Dr. Cota at [facility] -Echocardiogram today to rule out new wall motion abnormalities. -Trend troponin until decreasing Consult Acknowledgment - Thank you for your consult request.
--- NOTE | 2016-10-28 13:45 | Discharge Summary ---
Visit Information Visit Dates Admission Date: 10/28/16 Discharge Date: 10/29/2016 Hospital Course Course Attending Physician: CORRY MIRANDA,LEATHA Gallegos Primary Care Physician: SYEDA MEDLEY MD Consulting Request: Consulting Specialty: Cardiology Consulting Physician: Dr. Gutierrez Reason for Consult: Chest pain with elevated troponin Hospital Course: Mr. Palmer is an 81 year old male with PMH coronary artery disease with stent placement x 11 (last stent placement by Dr. Reaves in 2011), NSTEMI x 2 (2006, 2011), HTN, HLD, atrial fibrillation on pradaxa, chronic low back pain s/p L4-L5 fusion followed by Dr. Bolton, hypothyroidism, prostate cancer and melanoma status post excision who presented with chief complaint of right arm pain and right-sided chest pain. The patient was admitted to a telemetry floor and he managed him for the following conditions. Chest pain to rule out Acute coronary syndrome. On Presentation the patient had negative troponin of 0.01 however repeated troponin 6 hours later was elevated at 0.41 and 12 hours test had gone up to 1.1. There were no documented EKG changes and patient did not have chest pain. It was determined that the patient will benefit from catheterization. The patient is on Pradaxa for anticoagulation, we will be hold the Pradaxa evening dose make the patient nothing by mouth from midnight and transfer for cardiac catheterization. Hypokalemia [resolved] Patient presented with potassium of 3.0 received oral correction and improved significantly to 3.7. He has potassium chloride oral supplementation at home and was encouraged to continue taking his potassium supplementation as he takes diuresis which is subjecting him to hypokalemic state. Atrial fibrillation Patient has history of atrial fibrillation and is on anticoagulation. On this presentation heart rate was within normal range between 60 and 70s, he was continued on anticoagulation Pradaxa but was held on the night prior to transfer because of the impending procedure. Patient should continue to take Pradaxa per recommendation of intervention web ui designer after recovery from the procedure. Hypertension and hyperlipidemia Patient was maintained on vital checks and blood pressure remained within acceptable ranges. He was started on his home medication hydrochlorothiazide 12.5 mg daily, losartan 50 mg daily, and Norvasc 2.5 mg daily. The patient was also maintained on atorvastatin 40 mg for his hyperlipidemia. She should continue to take his antihypertensive medications post discharge. Benign prostatic enlargement Patient has history of prostate cancer. During the course of this admission he was Continued on Cardura 6 mg twice a day and Rapaflo 8 mg daily. Patient should continue on the same medication post discharge. Hypothyroidism Patient has history of hypothyroidism and at home is on levothyroxine 0.025 mg daily. He was kept on the same level of medication during the course of his stay and is discharged home to continue with medication at the same dose. Complications: None Allergies: Coded Allergies: alcohol (UNKNOWN 10/27/16) atorvastatin (From LIPITOR) (Severe, MUSCLE CRAMPS, LEGS PAIN 10/28/16) morphine (Intermediate, N/V 10/27/16) Disposition Summary Disposition Principal Diagnosis: NSTEMI Elevated troponins Additional Diagnosis: Hypokalemia Hypertension Hyperlipidemia Atrial fibrillation Prostatic enlargement Hypothyroidism Discharge Disposition: other general hospital Discharge Instructions General Discharge Information Code Status: Full Code Patient's Diet: Heart health/patient nothing by mouth for possible cardiac catheterization Patient's Activity: As tolerated Follow-Up Instructions/Appts: Please call and make a follow-up with primary care physician Dr. Medley within 1 week after discharge Please call and make a follow-up with your web ui designer Dr. Gutierrez within 1 week after discharge Medications at Discharge Discharge Medications: Continue taking these medications: Valsartan/Hydrochlorothiazide (Diovan Hct 320-12.5 MG Tab) 320 MG-12.5 MG TABLET 1 Tablet ORAL DAILY Comments: Last Taken: 10/29/16 Time: 9AM Amlodipine Besylate (Norvasc) 5 MG TABLET 0.5 Tablet ORAL DAILY Comments: Last Taken: 10/29/16 Time: 9AM Doxazosin Mesylate (Cardura) 4 MG TABLET 2 Tablet ORAL TWICE DAILY Comments: Last Taken: 10/29/16 Time: 9AM Dabigatran Etexilate Mesylate (Pradaxa 150 MG) 150 MG CAPSULE 1 Tablet ORAL TWICE DAILY Qty = 180 Comments: Last Taken: 10/28/16 Time: 10AM Aspirin (Aspirin*) 81 MG TAB.CHEW 1 Tablet ORAL DAILY Comments: Last Taken: 10/29/16 Time: 9AM Pregabalin (Lyrica) 75 MG CAPSULE 75 Milligram ORAL TWICE DAILY Qty = 60 Comments: Last Taken: 10/29/16 Time: 9AM Duloxetine HCl (Duloxetine HCl) 60 MG CAPSULE. 60 Milligram ORAL DAILY Qty = 90 Comments: Last Taken: 10/29/16 Time: 9AM Omeprazole (Omeprazole) 20 MG CAPSULE. 20 Milligram ORAL DAILY Qty = 90 Comments: Last Taken: 10/29/16 Time: 6AM Rosuvastatin Calcium (Crestor) 10 MG TABLET 10 Milligram ORAL DAILY Comments: NOT GIVEN IN HOSPITAL Silodosin (Rapaflo) 8 MG CAPSULE 8 Milligram ORAL DAILY Qty = 90 Comments: Last Taken: 10/28/16 Time: 10AM PT GIVEN FLOMAX, PT DUE TO GET IT TONIGHT Potassium Chloride (Potassium Chloride) 10 MEQ TAB.ER.PRT 10 Millequivalent ORAL DAILY Qty = 90 Comments: Last Taken: 10/29/16 Time: 9AM Ascorbic Acid (Vitamin C) 500 MG CAPSULE.ER 1 Tablet ORAL DAILY Comments: NOT GIVEN IN HOSPITAL Magnesium Oxide (Magnesium) 500 MG CAPSULE 500 Milligram ORAL DAILY Comments: Last Taken: 10/29/16 Time: 9AM Furosemide (Furosemide) 20 MG TABLET 20 Milligram ORAL DAILY Qty = 180 Comments: Last Taken: 10/28/16 Time: 10AM PT REFUSED THIS MORNING DUE TO CATH WILL NEED AFTER PROCEDURE Calcium Carbonate/Vitamin D3 (Caltrate 600 + D Tablet) 600 MG-800 TABLET 1 Tablet ORAL DAILY Comments: NOT GIVEN IN HOSPITAL Levothyroxine Sodium (Levothyroxine Sodium) 25 MCG TABLET 1 Tablet ORAL DAILY Comments: Last Taken: 10/29/16 Time: 6AM Copies To: JASMYNE MIRANDA,SYEDA Ram; Anderson GUTIERREZ MD
--- NOTE | 2016-10-28 14:05 | PN- Att Addend ---
Attending Addendum Attending Brief Note Pt seen and examined. Discussed with patient's and with Dr. Martinez. This is an 81-year-old male with known coronary artery disease with multiple stents in his right coronary artery most recently in 2011. He also has a history of hypertension and A. fib on Pradaxa. He is here with symptoms of chest pain and ongoing symptoms of GERD/indigestion. His troponin is going up from 0.4 to now 1.11. He got his last dose of Pradaxa early this morning and Dr. Martinez feels this will hang around for 24 hours. He will get no more Pradaxa today. We'll keep him nothing by mouth after midnight with the plan for cath in early a.m. as we have a high suspicion of ACS. We'll also trend his troponins today at 6 PM and depending on how high they are, again later tonight. If they acutely increase he may need to be transferred urgently for cath. The challenging part is the Pradaxa on board. He is bradycardic which doesn't allow us to use any beta blockers. He is on the ARB and hydrochlorothiazide with low-dose Lasix and amlodipine.
--- NOTE | 2016-10-28 14:51 | Patient Discharge Instructions ---
Discharge Instructions General Discharge Information You were seen/treated for: Chest pain elevated troponin Special Instructions: Please call and make a follow-up with her primary care physician within one week after discharge. Please call and make a follow-up with her security patrol driver Milena Martinez MD within 1 week after discharge Acute Coronary Syndrome Inclusion Criteria At DC or during hospital stay patient has or had the following: ACS DIAGNOSIS Yes Discharge Core Measures Meds if any: Prescribed or Continued at Discharge ISA/ARB if EF <40% No Aspirin Yes Beta-Daquan No Statin Yes Meds if any: NOT Prescribed or Continued at Discharge Congestive Heart Failure Inclusion Criteria At DC or during hospital stay patient has or had the following: CHF DIAGNOSIS No Discharge Core Measures Meds if any: Prescribed or Continued at Discharge Meds if any: NOT Prescribed or Continued at Discharge Cerebrovascular accident Inclusion Criteria At DC or during hospital stay patient has or had the following: CVA/TIA Diagnosis No Discharge Core Measures Meds if any: Prescribed or Continued at Discharge Meds if any: NOT Prescribed or Continued at Discharge Venous thromboembolism Inclusion Criteria VTE Diagnosis No VTE Type NONE VTE Confirmed by (Test) NONE Discharge Core Measures - Per Current guidelines, there needs to be overlap - treatment for the first 5 days of Warfarin therapy. - If discharged on Warfarin prior to 5 days of - overlap therapy, the patient will need to be - assessed for post discharge needs including - *Post discharge parental anticoagulation - *Warfarin and/or parental anticoagulation education - *Follow up date to check INR post discharge At least 5 days overlap therapy as Inpatient No Meds if any: Prescribed or Continued at Discharge Note: Overlap Therapy is Warfarin and Anticoagulant Meds if any: NOT Prescribed or Continued at Discharge
[2016-10-28 16:09] VITALS: BP 118/78
[2016-10-29 00:56] VITALS: BP 126/68
--- NOTE | 2016-10-29 02:22 | NUR ---
LATE ENTRY CRITICAL VALUE OF TROPONIN 1.00. MD PALM MADE AWARE. NNO AT THIS TIME.
--- NOTE | 2016-10-29 06:04 | PN- Housestaff ---
PHOEBE MIRANDA,MARY JO 10/29/16 0604: Subjective Follow-up For: Chest pain Elevated troponin Tele-Events Since Last Visit: Afib, HR 66-75 Subjective: Patient seen and examined at bedside. Sleeping comfortably in bed in no acute distress. Remains awake, alert and oriented x 3. He denies any chest or right arm pain with which he presented on admission. Denies any f/c, headache, chest pain, palpitations, dyspnea, n/v/c/d, dizziness/lightheadedness. No events reported overnight. Troponin trending down. Awaiting transfer to [facility]. Review of Systems Constitutional: Reports: see HPI. Objective Last 24 Hrs of Vital Signs/I&O Vital Signs Date Time Temp Pulse Resp B/P Pulse O2 O2 Flow FiO2 Ox Delivery Rate 10/29 0918 77 160/80 10/29 0917 77 160/80 10/29 0917 77 160/80 10/29 0800 Room Air 10/29 0742 77 16 160/80 94 Room Air 10/29 0056 98.7 81 16 126/68 94 Room Air 10/28 1609 98.0 75 18 118/78 96 10/28 1042 68 116/60 10/28 1042 68 116/60 10/28 1041 68 116/60 Intake & Output 10/29 1600 10/29 0800 10/29 0000 Intake Total 120 450 Output Total 650 700 Balance -530 -250 Intake, Oral 120 450 Number 0 Bowel Movements Output, Urine 650 700 Physical Exam General Appearance: Alert, Oriented X3, Cooperative, No Acute Distress Other Physical Findings: Skin Scattered erythematous and slightly raised lesions which patient report are chronic. , Chronic venous stasis changes of bilateral shins. HEENT Atraumatic, PERRLA, EOMI, Mucous Membr. moist/pink Neck Supple, +2 Carotid Pulse wo Bruit Lymphatic Cervical nl Cardiovascular Irregularly irregular, normal intensity S1/S2 Lungs Clear to Auscultation, Normal Air Movement Abdomen Obese, non-tender to palpation, +BS x four quadrants, left lower quadrant nerve stimulator and right abdomen surgical excisional scar. Neurological Normal Speech, Strength at 5/5 X4 Ext, Normal Tone Extremities No Clubbing, No Cyanosis, 1+ pitting edema of bilateral lower extremities with chronic stasis changes Vascular Pulses Symmetrical Current Medications: Current Medications Sig/Lencho Start time Last Medication Dose Route Stop Time Status Admin Acetaminophen 650 MG Q6P PRN 10/28 0230 AC PO Amlodipine Besylate 2.5 MG DAILY 10/28 1000 AC 10/29 PO 0918 Aspirin 81 MG DAILY 10/28 1000 AC 10/29 PO 0917 Atorvastatin Calcium 40 MG 1700 10/28 1700 AC PO Dabigatran 150 MG BID 10/28 1000 DC 10/28 PO 1042 Doxazosin Mesylate 8 MG BID 10/28 1000 AC 10/29 PO 0917 Duloxetine HCl 60 MG DAILY 10/28 1000 AC 10/29 PO 0917 Furosemide 20 MG DAILY 10/28 1000 AC 10/28 PO 1042 Hydrochlorothiazide 12.5 MG DAILY 10/28 1000 AC 10/29 PO 0918 Levothyroxine Sodium 0.025 MG DAILY AC 10/28 0700 AC 10/29 PO 0603 Losartan Potassium 50 MG DAILY 10/28 1000 AC 10/29 PO 0917 Magnesium Oxide 400 MG DAILY 10/28 1000 AC 10/29 PO 0918 Omeprazole 20 MG DAILY AC 10/28 0700 AC 10/29 PO 0603 Patient Medication 1 ED ONE ONE 10/28 1430 DC Teaching ED 10/28 1431 Potassium Chloride 10 MEQ DAILY 10/28 1000 AC 10/29 PO 0918 Pregabalin 75 MG BID 10/28 1000 AC 10/29 PO 0919 Tamsulosin HCl 0.4 MG DAILY 10/28 1000 AC 10/28 PO 1042 Last 24 Hrs of Lab/David Results Last 24 Hrs of Labs/Mics: Laboratory Tests 10/29/16 0005: Troponin I 1.00 *H 10/28/16 1827: Troponin I 1.00 *H 10/28/16 1230: Troponin I 1.11 *H Assessment/Plan Assessment: Mr. Palmer is a pleasant 81 year old male with PMH HTN, HLD, atrial fibrillation on pradaxa, coronary artery disease s/p 11 stents (most recent in 2011), two NSTEMI, chronic low back pain with L4-L5 fusion, hypothyroidism, prostate cancer and melanoma who presented with chest pain associated with right arm pain most likely 2/2 ACS. 1. Atypical chest pain with elevated troponins Due to extensive cardiac history and HPI suggestive of possible underlying cardiac cause of right arm/chest discomfort, patient was worked up for ACS. Trops were elevated to 0.4 and then 1.1. Trending down to 1.0 as of last night. * Continuous telemetry monitoring * Transfer to [facility] for cardiac cath * NPO and hold anticoagulation * Provide supplemental O2 as needed * Control pain with morphine or NG as needed 2. Hypokalemia - resolved Preseted with K of 3.0 on admission. Patient has a history of hypokalemia and is on supplementation as an outpatient. Patient was given 40 meq PO KDur and 10 meq KCl while in the ED * F/U repeat labwork in the morning shows K at 3.8 * Continue 10 meq PO KDur daily with 500 mg PO daily magnesium 3. HTN, HLD * Monitor vital signs Q shift * Continue HCTZ 12.5 mg PO daily, losartan 50 mg PO daily and norvasc 2.5 mg PO daily * Continue atorvastatin 40 mg PO daily 4. Atrial fibrillation At home patient is on Pradaxa 150 mg PO BID and aspirin daily * Hold Pradaxa in anticipation for cardiac cath today * Cont home med baby aspirin daily 5. Low back pain, right arm pain * Tylenol for mild pain * Continue home regimen of cymbalta 60 mg PO daily and lyrica 75 mg PO BID 6. Prostate * Continue cardura 6 mg PO BID and rapaflo 8 mg PO daily 7. Hypothyroidism * Continue synthroid 0.025 mg PO daily FULL CODE DVTP: SC Lovenox Heart Healthy Diet Mild and chronic pain pathway Problem List: 1. Benign prostatic hyperplasia 2. Carcinoma of prostate 3. Hip pain 4. Hyperlipidemia 5. Chest pain 6. Hypokalemia 7. Malaise and fatigue 8. Spinal stenosis 9. Benign hypertension 10. Basal cell carcinoma of face Pain Ratin Pain Location: 0 Pain Goal: Remain pain free Pain Plan: Mild pain pathway Tomorrow's Labs & Rationales: None Consulting Request: Consulting Specialty: Cardiology Consulting Physician: Dr. Martinez Reason for Consult: Chest pain with elevated troponin CORRY MIRANDA,LEATHA 10/29/16 1045: Attending MD Review Statement Attending Statement Attending MD Statement: examined this patient, discuss w/resident/PA/STEREOPTIC PROJECTION TOPOGRAPHER, agreed w/resident/PA/STEREOPTIC PROJECTION TOPOGRAPHER, discussed with family, reviewed EMR data (avail), discussed with nursing, discussed with case mgmt, reviewed images Attending Assessment/Plan: The patient feels okay. He is eager to have his cath done. He had no more episodes of chest discomfort and his troponin peaked at 1. He's not gotten any Pradaxa now since yesterday morning's dose and the plan is cath today for suspected ACS in a patient with known CAD and last stents done in 2011.
[2016-10-29 07:42] VITALS: BP 160/80
[2016-10-29 09:18] VITALS: BP 160/80
--- NOTE | 2016-10-29 18:31 | PN- Cardiology ---
Subjective Subjective: Doing OK with no recurrence of any symptoms. Awaiting cath today. Objective Vital Signs and I&Os Vital Signs Date Time Temp Pulse Resp B/P Pulse O2 O2 Flow FiO2 Ox Delivery Rate 10/29 09 77 160/80 10/29 09 77 160/80 10/29 09 77 160/80 10/29 0800 Room Air 10/29 0742 77 16 160/80 94 Room Air 10/29 0056 98.7 81 16 126/68 94 Room Air Intake & Output 10/29 1600 10/29 0800 10/29 0000 10/28 1600 10/28 0800 10/28 0000 Intake Total 240 120 450 400 480 0 Output Total 175 650 700 825 Balance 65 -530 -250 -425 480 0 Intake, Oral 240 120 450 400 480 0 Number 0 1 Bowel Movements Output, Urine 175 650 700 825 Patient 235 lb 235 lb Weight Physical Exam: General Appearance Alert, Oriented X3, Cooperative, No Acute Distress Skin Scattered erythematous and slightly raised lesions which patient report are chronic. , Chronic venous stasis changes of bilateral shins. HEENT normal Neck Supple, +2 Carotid Pulse wo Bruit Lymphatic Cervical nl Cardiovascular Irregularly irregular, normal intensity S1/S2, 1-2/6 systolic murmur Lungs Clear to Auscultation bilaterally Abdomen NOrmal Neurological Nonfocal Extremities No Clubbing, No Cyanosis, 1+ pitting edema of bilateral lower extremities with chronic stasis changes Vascular Pulses Symmetrical Current Medications: Current Medications Sig/Lencho Start time Last Medication Dose Route Stop Time Status Admin Acetaminophen 650 MG Q6P PRN 10/28 0230 DCD PO Amlodipine Besylate 2.5 MG DAILY 10/28 1000 DCD 10/29 PO 0918 Aspirin 81 MG DAILY 10/28 1000 DCD 10/29 PO 09 Atorvastatin Calcium 40 MG 1700 10/28 1700 DCD PO Doxazosin Mesylate 8 MG BID 10/28 1000 DCD 10/29 PO 09 Duloxetine HCl 60 MG DAILY 10/28 1000 DCD 10/29 PO 09 Furosemide 20 MG DAILY 10/28 1000 DCD 10/28 PO 1042 Hydrochlorothiazide 12.5 MG DAILY 10/28 1000 DCD 10/29 PO 0918 Levothyroxine Sodium 0.025 MG DAILY AC 10/28 0700 DCD 10/29 PO 0603 Losartan Potassium 50 MG DAILY 10/28 1000 DCD 03/17 PO 0917 Magnesium Oxide 400 MG DAILY 10/28 1000 DCD 10/29 PO 0918 Omeprazole 20 MG DAILY AC 10/28 0700 DCD 10/29 PO 0603 Potassium Chloride 10 MEQ DAILY 10/28 1000 DCD 10/29 PO 0918 Pregabalin 75 MG BID 10/28 1000 DCD 10/29 PO 0919 Tamsulosin HCl 0.4 MG DAILY 10/28 1000 DCD 10/28 PO 1042 Results Last 48 Hrs of Labs/Mics: Laboratory Tests 10/29/16 0005: Troponin I 1.00 *H 10/28/16 1827: Troponin I 1.00 *H 10/28/16 1230: Troponin I 1.11 *H 10/28/16 0621: Anion Gap 8, Estimated GFR > 60, BUN/Creatinine Ratio 20.0, Magnesium 2.2, Troponin I 0.41 *H, CBC w Diff NO MAN DIFF REQ, RBC 3.57 L, MCV 93.5, MCH 31.2 H, RDW 14.7 H, MPV 8.8, Gran % 71.1, Lymphocytes % 17.2 L, Monocytes % 8.9, Eosinophils % 2.2, Basophils % 0.6, Absolute Granulocytes 5.7, Absolute Lymphocytes 1.4, Absolute Monocytes 0.7 H, Absolute Eosinophils 0.2, Absolute Basophils 0, PUBS MCHC 33.4 10/27/16 2315: Anion Gap 13, Estimated GFR > 60, BUN/Creatinine Ratio 20.0, Glucose 143 H, Calcium 9.2, Total Bilirubin 0.5, AST 26, ALT 40, Alkaline Phosphatase 61, Troponin I < 0.01, Total Protein 6.4, Albumin 3.8, Globulin 2.6, Albumin/ Globulin Ratio 1.5, CBC w Diff NO MAN DIFF REQ, RBC 3.77 L, MCV 93.1, MCH 31.0, RDW 14.5, MPV 8.6, Gran % 65.8, Lymphocytes % 19.4 L, Monocytes % 11.4 H, Eosinophils % 2.7, Basophils % 0.7, Absolute Granulocytes 6.2, Absolute Lymphocytes 1.8, Absolute Monocytes 1.1 H, Absolute Eosinophils 0.2, Absolute Basophils 0.1, PUBS MCHC 33.3 Assessment/Plan Assessment/Plan Assessment: 1. Atypical chest and shoulder discomfort; rule out acute coronary syndrome 2. Elevated troponin 3. History of known coronary artery disease, status post multiple stents 4. Atrial fibrillation 5. Hypertension 6. Mild anemia Recommendations: - COntinue current meds - NPO for cardiac cath today. - Post cath followup with me in 2 weeks. Continue telemetry? No
== END 2016-10-29 10:55 | disposition short-term general hospital (02) ==
LOC: ENRESERVDT → ENRESERVTM → ERH 22:42 → ENPENDDIS 10-28 00:58 → ERHI 10-28 00:58 → 1NO 10-28 00:58
PROVIDERS: Emergency Medicine; Internal Medicine; ADMIT Internal Medicine
DX: R07.9 Chest pain, unspecified (principal); I48.91 Unspecified atrial fibrillation; I10 Essential (primary) hypertension; E78.5 Hyperlipidemia, unspecified; I25.2 Old myocardial infarction; E03.9 Hypothyroidism, unspecified; Z85.46 Personal history of malignant neoplasm of prostate; Z85.820 Personal history of malignant melanoma of skin; E87.6 Hypokalemia; Z79.01 Long term (current) use of anticoagulants
CPT/HCPCS: 36415; 72020; 82436; 93005; 93010; 96374; 96375; G0378; J3490

== ENCOUNTER 2017-10-26 16:12 | Emergency (ER) | payer OTHER ==
[~2017-10-26] VITALS: Ht 172.7 cm; Wt 108.9 kg
[~2017-10-26 16:12] MED LIST: ASPIRIN325 M2 PO; ASPIRIN81 M4 PO; CALTRATE 600 +1 EACH PO; CARDURA4 M1 PO; COLACE100 M1 PO; COUMADIN5 M2 PO; CRESTOR10 M1 PO; DILAUDID2 M1 PO; DIOVAN HCT 3201 EAC1 PO; DULOXETINE HCL60 MG PO; FUROSEMIDE20 M1 PO; LEVOTHYROXINE25 MCG PO; LYRICA100 M1 PO; LYRICA25 M1 PO; LYRICA75 M1 PO; MAGNESIUM500 M2 PO; MIRALAX17 G1 PO; NORVASC5 M1 PO; OCCUVITE; OMEPRAZOLE20 M2 PO; PLAVIX75 M1 PO; POTASSIUM CHLO10 ME5 PO; PRADAXA150 M1 PO; PRAVACHOL80 M1 PO; RAPAFLO8 M1 PO; TOLTERODINE TART4 M1 PO; TOPROL XL50 M1 PO; VITAMIN B12-FO1 EACH PO; VITAMIN C500 M7 PO
--- NOTE | 2017-10-26 17:20 | RADIOLOGY REPORT ---
EXAMINATION: XR KNEE, LEFT CLINICAL INFORMATION: Pain. Fall. COMPARISON: None TECHNIQUE: Four views of the left knee. FINDINGS: There is no fracture. There is no dislocation. No acute abnormality. There is mild joint narrowing medial femoral tibial joint with minimal marginal spur of the medial tibial plateau. There is also a minimal spur of the patella at the inferior patellofemoral joint. There are heavy vascular calcifications of the superficial femoral artery and the popliteal artery and artery in the upper calf. IMPRESSION: 1. No acute abnormality. 2. There is mild degenerative changes of the knee joint.
--- NOTE | 2017-10-26 17:33 | RADIOLOGY REPORT ---
EXAMINATION: 4 views of the left elbow CLINICAL INFORMATION: Pain COMPARISON: None TECHNIQUE: AP, lateral, and oblique views of the left elbow. FINDINGS: No fractures are identified. There is soft tissue swelling. No definite elbow joint effusion. No radiopaque foreign body. Bony articulations are maintained. IMPRESSION: No acute osseous findings. Soft tissue swelling.
--- NOTE | 2017-10-26 18:22 | ED MVC/FALL/TRAUMA COMPLAINT ---
History of Present Illness General Chief Complaint: Fall Stated Complaint: LAC TO L HAND, L ELBOW PAIN S/P FALL Source: patient, family Exam Limitations: no limitations Vital Signs & Intake/Output Vital Signs & Intake/Output Vital Signs Date Time Temp Pulse Resp B/P B/P Pulse O2 O2 Flow FiO2 Mean Ox Delivery Rate 10/26 1622 96.4 75 18 128/79 96 Room Air Allergies Coded Allergies: alcohol (UNKNOWN 10/27/16) atorvastatin (From LIPITOR) (Severe, MUSCLE CRAMPS, LEGS PAIN 10/28/16) morphine (Intermediate, N/V 10/27/16) Reconcile Medications Amlodipine Besylate (Norvasc) 5 MG TABLET 0.5 TAB PO DAILY HIGH BLOOD PRESSURE (Reported) Ascorbic Acid (Vitamin C) 500 MG CAPSULE.ER 1 TAB PO DAILY SUPP (Reported) Aspirin (Aspirin*) 325 MG TABLET 1 TAB PO BID ANTI-COAGULATION Calcium Carbonate/Vitamin D3 (Caltrate 600 + D Tablet) 600 MG-800 TABLET 1 TAB PO DAILY VITAMIN SUPPORT (Reported) Cyanocobalamin/Folic Acid (Vitamin V40-Croms Acid Tablet) 500 MCG-400 MCG TABLET 1 TAB PO DAILY SUPP (Reported) Docusate Sodium (Colace) 100 MG CAPSULE 1 CAP PO BID CONSTIPATION Doxazosin Mesylate (Cardura) 4 MG TABLET 1 TAB PO BID HIGH BLOOD PRESSURE ( Reported) Duloxetine HCl 60 MG CAPSULE.DR 60 MG PO DAILY PAIN CONTROL (Reported) Furosemide 20 MG TABLET 20 MG PO DAILY WATER RETENTION (Reported) Hydromorphone HCl (Dilaudid) 2 MG TABLET 1-2 TAB PO Q4-6 PRN PAIN Levothyroxine Sodium 25 MCG TABLET 1 TAB PO DAILY thyroid (Reported) Magnesium Oxide (Magnesium) 500 MG CAPSULE 500 MG PO DAILY RESTLESS LEGS ( Reported) Metoprolol Succ XL (Toprol Xl) 50 MG TAB 1 TAB PO DAILY CAD (Reported) [OCCUVITE] EYES (Reported) Omeprazole 20 MG CAPSULE.DR 20 MG PO DAILY STOMACH HEALTH (Reported) Polyethylene Glycol 3350 (Miralax) 17 GRAM POWD.PACK 1 PAC PO DAILY CONSTIPATION dissolve in water Potassium Chloride 10 MEQ TAB.ER.PRT 10 MEQ PO DAILY LOW POTASSIUM (Reported) Pravastatin Sodium (Pravachol) 80 MG TABLET 1 TAB PO DAILY CHOLESTEROL ( Reported) Pregabalin (Lyrica) 25 MG CAPSULE 1 CAP PO BID PAIN (Reported) Pregabalin (Lyrica) 100 MG CAPSULE 1 CAP PO BID PAIN (Reported) Silodosin (Rapaflo) 8 MG CAPSULE 8 MG PO DAILY BLADDER HEALTH (Reported) Warfarin Sodium (Coumadin) 5 MG TABLET 1 TAB PO DAILY clot prevention Triage Note: PT TO ER S/P 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 SUSTAINED LAC TO LEFT HAND, ABRASION TO RIGHT HAND ?LEFT KNEE AND ?LEFT ELBOW. NOT VISUALIZED IN TRIAGE. PT TAKES PRADAXA, PLAVIX AND ASPIRIN DAILY. Triage Nurses Notes Reviewed? yes Onset: Abrupt Duration: hour(s): Timing: no prior history Severity: moderate Injuries/Fall Location: upper extremity, lower extremity Method of Injury: fall Loss of Consciousness: no loss of consciousness HPI: Patient is an 82-year-old male on Pradaxa for A. fib presenting to the emergency department with chief complaint of laceration to left hand, abrasion to left knee and left elbow that happened prior to arrival. Patient reports that he was walking down cement steps and accidentally slipped down one step and fell. Denies head injury. No neck pain. Denies back pain. No numbness or tingling. Past History Travel History Traveled to [place] past 21 day No Medical History Any Pertinent Medical History? see below for history Neurological: NONE EENT: NONE Cardiovascular: AFIB, hypertension, hyperlipidemia, myocardial infarction, STENTS (14) Respiratory: NONE Gastrointestinal: NONE Hepatic: NONE Renal: NONE Musculoskeletal: chronic back pain Psychiatric: NONE Endocrine: hypothyroidism Blood Disorders: NONE Cancer(s): PROSTATE CANCER MELENOMA [employer] MEMBER/Reproductive: NONE History of MRSA: No History of VRE: No History of CDIFF: No Surgical History Surgical History: RIGHT HIP REPLACEMENT, STENTS X 11,BACK SURGERY Psychosocial History Who do you live with Spouse Services at Home None What is your primary language Italian Tobacco Use: Quit >30 days ago Family History Hx Contributory? No Review of Systems Review of Systems Constitutional: Reports: no symptoms. Comments Review of systems: See HPI, All other systems negative. Constitutional, no chills fever or weight loss HEENT: No visual changes no sore throat no congestion Cardiovascular: No chest pain ,palpitation , orthopnea or ankle swelling Skin, no jaundice no rashes Respiratory: No dyspnea cough sputum or hemoptysis GI: No nausea no vomiting : No dysuria No hematuria Muscle skeletal: no back pain, no neck pain, Neurologic: No numbness no confusion Psych: No stress anxiety or depression,. Heme/endocrine:ON PRADAXA Immunology: No splenectomy or history of AIDS Physical Exam Physical Exam General Appearance: well developed/nourished, no apparent distress, alert, awake , comfortable Comments: Well-developed well-nourished person in no acute distress HEENT: NORMAL INSPECTION Neck: full range of motion, no C-spine tenderness. Back: Full range of motion, nontender. Respiratory: No respiratory distress. Extremity: MILD EDEMA OVER LEFT ELBOW,FULL ROM. FULL ROM OF LEFT KNEE. Neuro: Alert X 3, motor sensory normal Skin: SUPERFICIAL ABRASION OVER LEFT KNEE, APPROX 3 CM, SUPERFICIAL ABRASION OVER LEFT ELBOW 2 CM, SUBQ LACERATION 4 CM OVER LATERAL ASPECT OF LEFT HAND. NO SURROUND ERYTHEMA. Psych: Mood and affect is normal, memory and judgment is normal. Core Measures ACS in differential dx? No CVA/TIA Diagnosis No Sepsis Present: No Sepsis Focused Exam Completed? No Progress Differential Diagnosis: LACERATION, ABRASION, CONTUSION Plan of Care: Current Medications Sig/Lencho Start time Last Medication Dose Stop Time Status Admin Lidocaine 20 ML ONCE ONE 10/26 1829 AC (Lidocaine 1%) 10/26 1830 Tetanus/Diphtheria 0.5 ML ONCE ONE 10/26 1829 AC Toxoids Adsorbed 10/26 1830 (Decavac) Diagnostic Imaging: Viewed by Me: Radiology Read. Discussed w/RAD: Radiology Read. Radiology Impression: PATIENT: FORREST ALMARAZ PRESENT AGE: 82 PATIENT ACCOUNT NO: [id number] : 35 LOCATION: [facility] ORDERING PHYSICIAN: Segundo Garcia (TBS) SERVICE DATE: 10/26/17 EXAM TYPE: RAD - XRY-KNEE, LEFT EXAMINATION: XR KNEE, LEFT CLINICAL INFORMATION: Pain. Fall. COMPARISON: None TECHNIQUE: Four views of the left knee. FINDINGS: There is no fracture. There is no dislocation. No acute abnormality. There is mild joint narrowing medial femoral tibial joint with minimal marginal spur of the medial tibial plateau. There is also a minimal spur of the patella at the inferior patellofemoral joint. There are heavy vascular calcifications of the superficial femoral artery and the popliteal artery and artery in the upper calf. IMPRESSION : 1. No acute abnormality. 2. There is mild degenerative changes of the knee joint. DICTATED BY: Macho Colunga MD DATE/TIME DICTATED:10/26/171713 OIL HEAT TECHNICIAN:EITAN DATE/TIME TRANSCRIBED:10/26/171713 CONFIDENTIAL, DO NOT COPY WITHOUT APPROPRIATE AUTHORIZATION. <Electronically signed in Other Vendor System> SIGNED BY: Macho Colunga MD 10/26/171719, PATIENT: FORREST ALMARAZ PRESENT AGE: 82 PATIENT ACCOUNT NO: [id number] : 35 LOCATION: ER ORDERING PHYSICIAN: Segundo Garcia DO (TBS) SERVICE DATE: 10/26/17 EXAM TYPE: RAD - XRY-ELBOW 3 OR MORE VIEWS, L EXAMINATION: 4 views of the left elbow CLINICAL INFORMATION: Pain COMPARISON: None TECHNIQUE: AP, lateral, and oblique views of the left elbow. FINDINGS: No fractures are identified. There is soft tissue swelling. No definite elbow joint effusion. No radiopaque foreign body. Bony articulations are maintained. IMPRESSION: No acute osseous findings. Soft tissue swelling. DICTATED BY: Segundo Mcclain MD DATE/TIME DICTATED:10/26/171727 OIL HEAT TECHNICIAN:EITAN DATE/ TIME TRANSCRIBED:10/26/171727 CONFIDENTIAL, DO NOT COPY WITHOUT APPROPRIATE AUTHORIZATION. <Electronically signed in Other Vendor System> SIGNED BY: Segundo Mcclain MD 10/26/171732 Departure Departure Time of Disposition: 1854 Disposition: HOME OR SELF CARE Condition: Stable Clinical Impression Primary Impression: Hand laceration Qualifiers: Encounter type: initial encounter Foreign body presence: without foreign body Laterality: left Qualified Code: S61.412A - Laceration without foreign body of left hand, initial encounter Secondary Impressions: Abrasion Referrals: Jesus Emerson MD (PCP/Family) Additional Instructions: Return to the emergency department in 7-10 days for suture removal. Keep area clean and dry. Keep other abrasions clean as well. Return sooner if he develop any increased redness pain or discharge from the abrasions or lacerations. Departure Forms: Customer Survey General Discharge Information Procedures Laceration/Wound Repair Laceration/Wound Repair: Wound Location: upper extremity (LEFT HAND) Wound's Depth, Shape: flap, subcutaneous Wound Length (cm): 4 Wound Explored: clean, no foreign body removed, irrigated extensively Irrigated w/ Saline (ccs): 500 Betadine Prep? Yes Anesthesia: 1% lidocaine Volume Anesthetic (ccs): 4 Wound Debrided: minimal Wound Repaired With: sutures Suture Size/Type: 5:0, nylon Number of Sutures: 8 Layer Closure? No Date of Last Tetanus: 10/26/17 Tetanus Status: up to date Progress: Tolerated procedure well.
[2017-10-26 19:30] VITALS: BP 163/72
== END 2017-10-26 19:31 ==
LOC: ERH 16:12
DX: S61.412A Laceration without foreign body of left hand, initial encounter (principal); S50.312A Abrasion of left elbow, initial encounter; S80.212A Abrasion, left knee, initial encounter; W10.9XXA Fall (on) (from) unspecified stairs and steps, initial encounter; Y93.01 Activity, walking, marching and hiking; Y92.9 Unspecified place or not applicable
CPT/HCPCS: 73080-LT; 73560-LT; 90471; 90714